=== PATIENT | female | born 1995 | race Hispanic/Latino ===

== ENCOUNTER 2020-11-29 06:56 | Emergency (ER) | payer SELFPAY | END 2020-11-29 11:02 | disposition home or self-care (01) | LOC: ERS 06:56 | DX: R07.9 Chest pain, unspecified (principal) | CPT/HCPCS: 71045; 93005 ==

== ENCOUNTER 2021-06-03 06:47 | Emergency (ER) | payer SELFPAY ==
[2021-06-03 07:57] LABS: Bilirubin Negative (Negative); Blood, Urine 3+ (Negative); Clarity Clear (Clear); Glucose, Urine (Dipstick) Normal (Negative); Ketone, Urine Negative (Negative); Leukocyte 250 Leu/uL (Negative); Nitrite Negative (Negative); Pregnancy Test - Urine (BHCG) Negative (Negative); Pregu Control Background? CLEAR/WHITE (CLR/WHITE); Pregu Control Bar Appear? YES (CONTROL BAR); Protein, Urine (Dipstick) 20 mg/dL (Neg-Trace); Squamous Epithelial 0-3 HPF (0-3); Urobilinogen Normal mg/dL (Less than 2)
[2021-06-03 08:04] LABS: Bacteria/HPF 2+ HPF (None Seen); WBC/HPF 21-50 HPF (0-3)
== END 2021-06-03 08:38 | disposition home or self-care (01) ==
LOC: ERS 06:47
DX: N30.01 Acute cystitis with hematuria (principal)
CPT/HCPCS: 81003; 81015; 81025; 87077; 87086; 87186; 99283